=== PATIENT | female | born 1985 | race Caucasian/White ===

== ENCOUNTER 2018-08-29 09:55 | Emergency (ER) | payer BC, OTHER ==
--- NOTE | 2018-08-29 11:04 | EDM.PDOC ---
ED HPI GENERAL MEDICAL PROBLEM - General Chief Complaint: Upper Extremity Injury/Pain Stated Complaint: Finger injury Time Seen by Provider: 08/29/18 10:15 Source of Information: Reports: Patient - History of Present Illness INITIAL COMMENTS - FREE TEXT/NARRATIVE: Patient presented to ER from work with injury to left hand 4th finger. patient states that she caught her finger in between the wool cleaner and the ledge of the window and tore her fingernail. She did initially have significant pain but did improve by the time I saw her. 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: Other (see below) Other Treatments COPPERSMITH APPRENTICE: dressing Left Finger-Ring Pain Score (Numeric/FACES): 4 - Related Data Allergies Allergy/AdvReac Type Severity Reaction Status Date / Time No Known Allergies Allergy Verified 08/29/18 10:14 Home Meds: Home Meds Multivitamin [Multi-Vitamin Daily] 1 tab.chew PO DAILY 08/29/18 [History] Social & Family History - Tobacco Use Smoking Status *Q: Current Some Day Smoker Years of Tobacco use: 18 Packs/Tins Daily: 0.2 - Caffeine Use Caffeine Use: Reports: Coffee - Recreational Drug Use Recreational Drug Use: No Review of Systems - Review of Systems Review Of Systems: See Below Constitutional: Reports: No Symptoms Eyes: Reports: No Symptoms Ears: Reports: No Symptoms Nose: Reports: No Symptoms Mouth/Throat: Reports: Loose Teeth Respiratory: Reports: No Symptoms Cardiovascular: Reports: No Symptoms GI/Abdominal: Reports: No Symptoms Musculoskeletal: Reports: Arm Pain (left hand 4th finger pain) Skin: Reports: Wound (left hand 4th finger) Neurological: Reports: No Symptoms Psychiatric: Reports: No Symptoms ED EXAM, GENERAL - Physical Exam Exam: See Below General Appearance: Alert, WD/WN, Mild Distress Head: Atraumatic, Normocephalic Neck: Normal Inspection, Supple, Non-Tender, Full Range of Motion Respiratory/Chest: No Respiratory Distress, Lungs Clear, Normal Breath Sounds, No Accessory Muscle Use, Chest Non-Tender Cardiovascular: Normal Peripheral Pulses, Regular Rate, Rhythm, No Edema, No Gallop, No JVD, No Murmur, No Rub GI/Abdominal: Normal Bowel Sounds, Soft, Non-Tender, No Organomegaly, No Distention, No Abnormal Bruit, No Mass Extremities: Other (left hand 4th finger crush injury- no bone fracture. ) Psychiatric: Normal Affect, Normal Mood Skin Exam: Wound/Incision (left hand 4th finger crush injury) ED TRAUMA EXTREMITY PROCEDURES - Laceration/Wound Repair Left Digit - 4th (Ring) Lac/Wound Length In cm: 0.5 Appearance: Superficial Anesthetic Type: Digital Local Anesthesia - Lidocaine (Xylocaine): 1% Plain Local Anesthetic Volume: 5cc Skin Prep: Providone-Iodine (Betadine) Exploration/Debridement/Repair: Wound Explored Closed With: Dermabond Course - Vital Signs Last Recorded V/S: Last Vital Signs Temp 97.8 F 08/29/18 09:57 Pulse 84 08/29/18 09:57 Resp 18 08/29/18 09:57 BP 119/78 08/29/18 09:57 Pulse Ox 100 08/29/18 09:57 - Orders/Labs/Meds Orders: Active Orders 24 hr Category Date Time Status Skin Adhesive [RC] STAT Care 08/29/18 10:51 Ordered Fingers Fourth Digit Lt F3 [CR] Stat Exams 08/29/18 10:07 Taken Meds: Medications Discontinued Medications Generic Name Dose Route Start Last Admin Trade Name Freq PRN Reason Stop Dose Admin Lidocaine HCl 5 ml 08/29/18 10:08 Xylocaine-Mpf 1% INJECT 08/29/18 10:09 ONETIME ONE Departure - Departure Time of Disposition: 11:05 Disposition: Home, Self-Care 01 Clinical Impression: Crush injury of hand Qualifiers: Encounter type: initial encounter Laterality: left Qualified Code(s): S67.22XA - Crushing injury of left hand, initial encounter - Discharge Information *PRESCRIPTION DRUG MONITORING PROGRAM REVIEWED*: Not Applicable *COPY OF PRESCRIPTION DRUG MONITORING REPORT IN PATIENT ROSEY: Not Applicable Instructions: Crush Injury of the Hand Referrals: Charisma Jane PA-C [Primary Care Provider] - (Follow up with PCP in 5-7 days) Care Plan Goals: patient ok to go home. Take 600mg of Ibuprofen every 6 hours as needed for pain. Call us if any other concerns. - My Orders Last 24 Hours: My Active Orders 08/29/18 10:07 Fingers Fourth Digit Lt F3 [CR] Stat 08/29/18 10:51 Skin Adhesive [RC] STAT - Assessment/Plan Last 24 Hours: My Active Orders 08/29/18 10:07 Fingers Fourth Digit Lt F3 [CR] Stat 08/29/18 10:51 Skin Adhesive [RC] STAT
== END 2018-08-29 11:20 | disposition home or self-care (01) ==
LOC: LL.ED 09:55
DX: S67.22XA Crushing injury of left hand, initial encounter (principal); F17.210 Nicotine dependence, cigarettes, uncomplicated; W23.0XXA Caught, crushed, jammed, or pinched between moving objects, initial encounter
CPT/HCPCS: 12001; 73140-F3; 99283-25; J2001

== ENCOUNTER 2021-09-07 09:13 | Emergency (ER) | payer OTHER ==
[2021-09-07] MEDS ORDERED: Sodium Chloride 0.9% 10 ML Syringe FLUSH PRN (09:29)
[2021-09-07] MEDS: GI Cocktail Oral Solution 30 ML PO ONE (09:47)
[2021-09-07] MEDS: Lactated Ringers 1,000 ML IV SCH (09:48)
[2021-09-07 10:44] LABS: SODIUM,NA 143 mmol/L (136-145)
[2021-09-07 10:45] LABS: CHLORIDE,CL 105 mmol/L (98-107)
== END 2021-09-07 11:10 | disposition home or self-care (01) ==
LOC: LL.ED 09:13
DX: K21.9 Gastro-esophageal reflux disease without esophagitis (principal); R12 Heartburn; Z72.0 Tobacco use
CPT/HCPCS: 36415; 80053; 83690; 83735; 84484; 84703; 85025; 93005; 99283-25; A9270-GY; J7120